=== PATIENT | female | born 1960 | race Caucasian/White ===

== ENCOUNTER 2023-03-09 19:18 | Emergency (ER) | payer OTHER ==
[~2023-03-09] VITALS: Ht 162.6 cm; Wt 83.9 kg
[~2023-03-09 19:18] MED LIST: FLONASE ALLERG9.9 ML; MULTIPLE VITAM1 EAC2 PO; NP THYROID30 MG PO; VITAMIN D3125 MC1 PO
[2023-03-09 19:52] LABS: BASOPHILS 0.2 % (0-2); EOSINOPHILS 5.5 % (0-6); HEMATOCRIT 46.3 % (35.0-50.0); HEMOGLOBIN 15.4 g/dL (12.0-18.0); LYMPHOCYTES 21.6 % (24-44); MCH 31.6 (27-36); MCHC 33.2 g/dl (30-36); MONOCYTES 6.6 % (0-12); NEUTROPHILS 66.1 % (39-80); PLATELET COUNT 294 K/uL (140-440); RBC 4.88 M/ul (4.3-5.7); RDW 13.4 (10.5-15.0)
[2023-03-09 20:11] LABS: ALBUMIN 3.8 g/dL (3.4-5.0); ALBUMIN/GLOBULIN RATIO 1.09 (1.1-2.4); ANION GAP 12.5 (7-21); BILIRUBIN, TOTAL 0.7 ng/dL (0.2-1.0); BUN/CREATININE RATIO 17.56 (6.0-28.6); CREATININE, SERUM 0.74 mg/dL (0.55-1.02); POTASSIUM 3.5 mmol/L (3.5-5.1); PROTEIN, TOTAL 7.3 g/dL (6.4-8.2)
[2023-03-09 20:13] LABS: BILIRUBIN, URINE NEGATIVE (negative); BLOOD/HGB, URINE SMALL (Negative); KETONE, URINE TRACE (Negative); LEUK ESTERASE, URINE NEGATIVE (negative); NITRITE, URINE NEGATIVE (negative); PH, URINE 5.5 (5-7)
[2023-03-09 20:19] LABS: BACTERIA, URINE RARE /hpf (negative); CASTS, URINE NONE SEEN \\lpf; CRYSTALS, URINE NONE SEEN (0-1+); EPITHELIAL CELLS, URINE SQUAMOUS 1+ /lpf (0-1+); REFLEX CULTURE, URINE No (No)
[2023-03-09 20:53] VITALS: BP 145/81
--- NOTE | 2023-03-10 05:51 | EKG ---
[facility] [address] [facility] [place] [address] Signed Sinus tachycardia Nonspecific ST and T wave abnormality Abnormal ECG No previous ECGs available Confirmed by RAHEEM PADRON MD ([id number]) on 03/10/2023 5:51:41 AM Electronically Signed By: RAHEEM PADRON 03/10/23 0551 PATIENT NAME: MONAE TOMPKINS ANN Electrocardiogram DATE OF : 58 PHYSICIAN: RAHEEM PADRON REPORT #: [id number] REPORT IS CONFIDENTIAL AND NOT TO BE RELEASED WITHOUT AUTHORIZATION
== END 2023-03-09 20:50 | disposition home or self-care (01) ==
LOC: ED 19:18
PROVIDERS: Internal Medicine
DX: I10 Essential (primary) hypertension (principal); F43.9 Reaction to severe stress, unspecified; Z88.0 Allergy status to penicillin; Z88.1 Allergy status to other antibiotic agents; Z88.2 Allergy status to sulfonamides; Z91.040 Latex allergy status; Z79.51 Long term (current) use of inhaled steroids; Z79.899 Other long term (current) drug therapy
CPT/HCPCS: 36415; 80053; 81001; 84484; 85025; 93005; 93010; 99283-25; J7121

== ENCOUNTER 2024-05-13 16:55 | Emergency (ER) | payer OTHER ==
[~2024-05-13] VITALS: Ht 162.6 cm; Wt 90.3 kg
[2024-05-13] MEDS ORDERED: ARMOUR THYROID30 MG PO (17:29)
[2024-05-13] MEDS ORDERED: VENTOLIN HFA18 GM INH (17:30)
[2024-05-13] MEDS ORDERED: SODIUM CHLORIDE 0.9% 500 ML IV PRN (19:45)
[2024-05-13 20:12] LABS: BILIRUBIN, URINE NEGATIVE (negative); BLOOD/HGB, URINE TRACE-I (Negative); KETONE, URINE NEGATIVE (Negative); LEUK ESTERASE, URINE SMALL (negative); NITRITE, URINE NEGATIVE (negative)
[2024-05-13 20:19] LABS: BACTERIA, URINE 1+ /hpf (negative); CASTS, URINE NONE SEEN \\lpf; COLLECTION TYPE, URINE CLEAN CATCH; CRYSTALS, URINE NONE SEEN (0-1+); EPITHELIAL CELLS, URINE SQUAMOUS 2+ /lpf (0-1+); REFLEX CULTURE, URINE No (No); WHITE BLOOD CELLS, URINE 21-40 /HPF (0-5)
[2024-05-13 20:26] LABS: BASOPHILS 0.2 % (0-2); EOSINOPHILS 0.4 % (0-6); HEMATOCRIT 46.5 % (35.0-50.0); HEMOGLOBIN 15.3 g/dL (12.0-18.0); LYMPHOCYTES 10.4 % (24-44); MCH 31.2 (27-36); MCHC 32.9 g/dl (30-36); MCV 94.8 fl (81-99); MONOCYTES 3.2 % (0-12); NEUTROPHILS 85.8 % (39-80); PLATELET COUNT 312 K/uL (140-440); RDW 13.9 (10.5-15.0)
[2024-05-13 20:36] LABS: ALBUMIN 3.6 g/dL (3.4-5.0); ALBUMIN/GLOBULIN RATIO 0.88 (1.1-2.4); BILIRUBIN, TOTAL 0.4 mg/dL (0.2-1.0); BUN/CREATININE RATIO 18.3 (6.0-28.6); CALCIUM 9.2 mg/dL (8.5-10.1); CREATININE, SERUM 0.71 mg/dL (0.55-1.02); MAGNESIUM 1.9 mg/dL (1.8-2.4); PROTEIN, TOTAL 7.7 g/dL (6.4-8.2)
[2024-05-13] MEDS ORDERED: CEFTRIAXONE/SODIUM CHLORIDE 2 GM/100 ML PIGGYBACK IV ONE (21:15)
[2024-05-13] MEDS ORDERED: SOD PHOSPHATE/SOD BIPHOSPHATE 132 ML BTL PR ONE (21:30)
[2024-05-13] MEDS ORDERED: CEFDINIR300 MG PO (22:25)
[2024-05-13] MEDS ORDERED: CEFDINIR 300 MG HOME.PACK PO ONE (22:30)
[2024-05-13] MEDS ORDERED: methylPREDNISolone 4 MG HOME.PACK PO ONE (22:30)
[2024-05-13] MEDS ORDERED: ONDANSETRON ODT8 MG PO (22:56)
[2024-05-13] MEDS ORDERED: ONDANSETRON 4 MG HOME.PACK SL ONE (23:00)
[2024-05-13 23:08] VITALS: BP 155/85
--- NOTE | 2024-05-14 11:35 | EKG ---
[facility] [address] [facility] [place] [address] Signed Normal sinus rhythm Nonspecific ST abnormality Abnormal ECG When compared with ECG of 09-MAR-2023 19:45, Nonspecific T wave abnormality, improved in Inferior leads Nonspecific T wave abnormality no longer evident in Lateral leads Confirmed by Robert Falk DO ([id number]) on 05/14/2024 11:35:39 AM Electronically Signed By: ROBERT FALK DO 05/14/24 1135 PATIENT NAME: MONAE TOMPKINS ANN Electrocardiogram DATE OF : 58 PHYSICIAN: ROBERT FALK DO REPORT #: [id number] REPORT IS CONFIDENTIAL AND NOT TO BE RELEASED WITHOUT AUTHORIZATION
== END 2024-05-13 23:10 | disposition home or self-care (01) ==
LOC: ED 16:55
PROVIDERS: Family Medicine
DX: J35.8 Other chronic diseases of tonsils and adenoids (principal); R59.0 Localized enlarged lymph nodes; N39.0 Urinary tract infection, site not specified; E07.9 Disorder of thyroid, unspecified; Z88.2 Allergy status to sulfonamides; Z88.1 Allergy status to other antibiotic agents; Z88.0 Allergy status to penicillin; Z91.040 Latex allergy status; Z79.890 Hormone replacement therapy; Z79.899 Other long term (current) drug therapy
CPT/HCPCS: 36415; 70450; 70496; 70498; 80053; 81001; 83690; 83735; 84484; 85025; 93005; 93010; 99284-25; A9270; J0696; J7040; Q9967

== ENCOUNTER 2024-09-07 10:50 | Day surgery (SDC) | payer OTHER ==
[~2024-09-07] VITALS: Ht 162.6 cm; Wt 86.4 kg
[~2024-09-07 10:50] MED LIST changes: +ARMOUR THYROID30 MG PO; +ASHWAGANDHA300 MG PO; +CEFDINIR300 MG PO; +FLUTICASONE P10.6 GM INH; +IBLOOD GLUCOSE TEST STRIP 1 EA TEST VI PRN; +LACTATED RINGER'S 1,000 ML IV SCH; +LIDOCAINE HCL 1% 5 ML SDV INJ ONE; +LIDOCAINE HCL 4% 50 ML BTL TOP SCH; +MIDAZOLAM HCL 5 MG/5 ML VIAL IV PRN; +NAC500 MG PO; +ONDANSETRON ODT8 MG PO; +QUERCETIN500 MG PO; +SUDOGEST30 MG PO; +VENTOLIN HFA18 GM INH; +fentaNYL citrate 100 MCG/2 ML VIAL IV PRN
[2024-09-07] MEDS ORDERED: MIDAZOLAM HCL 5 MG/5 ML VIAL ONE (10:54)
[2024-09-07] MEDS ORDERED: fentaNYL citrate 100 MCG/2 ML VIAL ONE (10:54)
[2024-09-07 11:05] VITALS: BP 133/76
[2024-09-07] MEDS ORDERED: FLONASE SENSIM5.9 ML NS (11:10)
--- NOTE | 2024-09-07 12:03 | NUR ---
09/07/24 1203 Anjelica Velazquez 1156- PT ARRIVES TO PACU, LEFT LATERAL SEMI ZAPIEN POSIITON. PT VERY DROWSY, BUT ANSWERS QUESTIONS. ABD SOFT, NON DISTENDED. DENIES PAIN OR NAUSEA. O2 AT 2L PER NC, BREATHING EVEN AND NON LABORED. LR INFUSING TO RW IV. 1158- PT FALLS BACK TO SLEEP WITH NO STIMULUS, SLIGHT SNORING BUT BREATHING EVEN AND NON LABORED.
[2024-09-07 12:43] VITALS: BP 116/72
--- NOTE | 2024-09-10 14:30 | OR ---
[facility] [address] [place], [place] [address] Signed DATE OF OPERATION: 09/07/2024 SURGEON: Kylee Reyes MD PREOPERATIVE DIAGNOSIS: Hoarseness of throat, hypertrophied left tonsil and clinical gastroesophageal reflux. POSTOPERATIVE DIAGNOSES: 1. Normal vocal cords. 2. Hiatal hernia with distal esophagitis, mild antral gastritis. PROCEDURE: Esophagogastroduodenoscopy with biopsy. ANESTHESIA: Intravenous sedation fentanyl 100 mcg and Versed 5 mg. INDICATION: This 63-year-old white woman is a patient of FRANCISCO JAVIER Burgos. She was seen by me initially for a left lower pole 1.2 cm heterogeneous thyroid nodule. Fine-needle aspiration biopsy demonstrated cystic fluid and ultimately considered [place] category 2 thyroid nodule, not worrisome for malignancy. The patient has low-grade hoarseness and is also noted to have an enlarged tonsil on the left side. CT scan shows minimal lymph node enlargement in the left neck and she underwent fine-needle aspiration biopsy of the left thyroid nodule as well as one of the lymph nodes. The lymph node biopsy was nondiagnostic. She was seen by Dr. Jolley, ENT surgeon regarding the tonsillar findings. Tonsils considered normal and although larger than the right, not worrisome. She does have an underlying bit of voice hoarseness, which she attributes to allergies. I have recommended upper endoscopy as she does concurrently have reflux symptoms and not currently under ongoing anti-reflux medication treatment. Upper endoscopy is offered to not only evaluate for reflux, but also assess the vocal cords. The risk of bleeding, infection, and perforation related to upper endoscopy was reviewed with her. She understands and wished to proceed. FINDINGS: The vocal cords were normal. The distal esophagus did show inflammation but no sign of Black's epithelium. There was a poor flap valve consistent with hiatal hernia. Stomach had mild antral gastritis. CLOtest was negative. The duodenum was normal. DESCRIPTION OF PROCEDURE: Electronically Signed By: KYLEE REYES MD 09/10/24 1430 PATIENT NAME: MONAE TOMPKINS OPERATIVE REPORT DATE OF : 58 REPORT #: [id number] PHYSICIAN: KYLEE REYES MD PCP: KARINA SHERIFF PAC REPORT IS CONFIDENTIAL AND NOT TO BE RELEASED WITHOUT AUTHORIZATION [facility] [address] [place], [place] [address] Signed The patient was brought to the endoscopy suite and placed in lateral decubitus position, given intravenous sedation to the point of slurred speech and nystagmus. Full cardiopulmonary monitoring was maintained. A bite block was placed. An Olympus video upper endoscope was passed in the hypopharynx and close visualization of the vocal cords showed no sign of nodule or other abnormality. Scope was easily passed in the esophagus throughout its length, it was grossly normal except in the distal portion where there was mild inflammatory change with no Black epithelium. Scope was advanced to the stomach which was insufflated with air. Rugal folds were normal. The antrum showed mild inflammation but no sign of ulceration. The pylorus was normal. Scope was passed through it into the duodenum. Biopsies were then taken of the duodenum. Scope was withdrawn and biopsies taken of the antrum for both DONNA and pathologic testing. Retroflexed view in visualize the GE junction which was patulous and consistent with low-grade hiatal hernia. Scope was withdrawn and biopsies then taken of the distal esophagus and subsequently midesophagus. Further withdrawal showed no other abnormality. The patient was taken to recovery room in good condition and suffered no complication. CONCLUSION DIAGNOSIS: Gastroesophageal reflux with associated distal esophagitis related to hiatal hernia, possibly accounting for hoarseness, but no evidence of vocal cord nodule. RECOMMENDATIONS: Prilosec 20 mg p.o. daily. We will see her back in the office in four to six weeks to review her pathology report, assess her symptoms at that point. MD SHELIA Hector/KEEGANL /[id number] Copies: ~ Electronically Signed By: KYLEE REYES MD 09/10/24 1430 PATIENT NAME: MONAE TOMPKINS OPERATIVE REPORT DATE OF : 58 REPORT #: [id number] PHYSICIAN: KYLEE REYES MD PCP: KARINA SHERIFF PAC REPORT IS CONFIDENTIAL AND NOT TO BE RELEASED WITHOUT AUTHORIZATION
--- NOTE | 2024-09-11 10:56 | PATH ---
[facility] [address] [place], [place] [address] Signed SPECIMEN(S): A DUODENAL BIOPSY SPECIMEN(S): B ANTRUM BIOPSY SPECIMEN(S): C DISTAL ESOPHAGEAL BIOPSY SPECIMEN(S): D MIDDLE ESOPHAGEAL BIOPSY SPECIMEN SOURCE: A. DUODENAL BIOPSY B. ANTRUM BIOPSY C. DISTAL ESOPHAGEAL BIOPSY D. MIDDLE ESOPHAGEAL BIOPSY CLINICAL HISTORY: Pre-: Reflux/voice hoarseness. Post: Distal esophagitis, hiatal hernia, normal vocal cords A-D) biopsy FINAL PATHOLOGIC DIAGNOSIS: A. Duodenal biopsy: - Benign small bowel mucosa consistent with duodenum - Negative for specific features of celiac sprue B. Antrum biopsy: - Fragments of benign gastric mucosa - Negative for active acute inflammation, intestinal metaplasia, dysplasia, or Helicobacter organisms by routine HE stain C. Distal esophageal biopsy: - Benign squamous mucosa with moderate to marked eosinophilia (up to 35 eosinophils per high-power field) - Negative for glandular mucosa, intestinal metaplasia, or dysplasia D. Middle esophageal biopsy: - Benign squamous mucosa with marked eosinophilia (up to 40 eosinophils per high-power field) - Negative for glandular mucosa, intestinal metaplasia, or dysplasia BB MICROSCOPIC EXAMINATION: Histologic sections of all submitted blocks are examined by light microscopy. These findings, together with the gross examination, support the pathologic diagnosis. GROSS DESCRIPTION: A. The specimen, labeled and designated "Eva Valentino, duodenal biopsy," is PATIENT NAME: MONAE VALENTINO PATHOLOGY DATE OF : 58 REPORT #: [id number] PHYSICIAN: PAUL GARCIA PCP: KARINA SHERIFF PAC REPORT IS CONFIDENTIAL AND NOT TO BE RELEASED WITHOUT AUTHORIZATION [facility] [address] [place], [place] [address] Signed received in formalin and consists of two obrien soft tissue fragments, ranging from 0.3-0.4 cm. Entirely submitted in (A1). B. The specimen, labeled and designated "Chicho, C, antrum biopsy," is received in formalin and consists of one obrien soft tissue fragment, 0.9 cm. Entirely submitted in (B1). C. The specimen, labeled and designated "Chicho, C, distal esophageal biopsy," is received in formalin and consists of three obrien soft tissue fragments, ranging from 0.2-0.8 cm. Entirely submitted in (C1). D. The specimen, labeled and designated "Chicho, C, middle esophageal biopsy," is received in formalin and consists of two obrien soft tissue fragments, ranging from 0.4-0.5 cm. Entirely submitted in (D1). AB (under the direct supervision of a pathologist) The Gross Description was prepared using a voice recognition system. The report was reviewed for accuracy; however, sound-alike word errors, addition and/or deletions may occur. If there is any question about this report, please contact Client Services. ADDITIONAL NOTES: Immunohistochemical and/or in situ hybridization studies if performed in this case included appropriate positive controls that reacted as expected. This test was developed and its performance characteristics determined by [facility] [employer]. It has not been cleared or approved by the U.S. Food and Drug Administration. The FDA has determined that such clearance or approval is not necessary. This test is used for clinical purposes. It should not be regarded as investigational or for research. [facility] is certified under the Clinical Laboratory Improvement Amendments of 1988 (CLIA) as qualified to perform high complexity clinical laboratory testing. PERFORMING LABORATORY: Technical component was performed by [facility], [address] [place] [address] (CLIA# [id number]). Professional interpretation was performed by [facility] - [address] [place] [address] (CLIA#: [id number]). Diagnostician: Sal Thompson MD Pathologist Electronically Signed 09/11/2024 PATIENT NAME: MONAE VALENTINO ANN PATHOLOGY DATE OF : 58 REPORT #: [id number] PHYSICIAN: PAUL PATHOLOGY PCP: KARINA SHERIFF PAC REPORT IS CONFIDENTIAL AND NOT TO BE RELEASED WITHOUT AUTHORIZATION [facility] [address] [facility] [place] [address] Signed Copies: ~ PATIENT NAME: MONAE VALENTINO ANN PATHOLOGY DATE OF : 58 REPORT #: [id number] PHYSICIAN: PAUL PATHOLOGY PCP: KARINA SHERIFF PAC REPORT IS CONFIDENTIAL AND NOT TO BE RELEASED WITHOUT AUTHORIZATION
== END 2024-09-07 12:36 | disposition home or self-care (01) ==
LOC: DS 10:50
PROVIDERS: ATTEND Surgery
PROC: 0DB78ZX Excision of Stomach, Pylorus, Via Natural or Artificial Opening Endoscopic, Diagnostic (ICD-10-PCS; 2024-09-07)
PROC: 0DB28ZX Excision of Middle Esophagus, Via Natural or Artificial Opening Endoscopic, Diagnostic (ICD-10-PCS; 2024-09-07)
PROC: 0DB38ZX Excision of Lower Esophagus, Via Natural or Artificial Opening Endoscopic, Diagnostic (ICD-10-PCS; 2024-09-07)
PROC: 0DB98ZX Excision of Duodenum, Via Natural or Artificial Opening Endoscopic, Diagnostic (ICD-10-PCS; principal; 2024-09-07 12:15)
DX: K21.00 Gastro-esophageal reflux disease with esophagitis, without bleeding (principal); K29.70 Gastritis, unspecified, without bleeding; K44.9 Diaphragmatic hernia without obstruction or gangrene; J35.1 Hypertrophy of tonsils; E04.1 Nontoxic single thyroid nodule; J45.909 Unspecified asthma, uncomplicated; E03.9 Hypothyroidism, unspecified; Z79.51 Long term (current) use of inhaled steroids; Z79.890 Hormone replacement therapy; Z88.0 Allergy status to penicillin; Z88.1 Allergy status to other antibiotic agents; Z88.2 Allergy status to sulfonamides
CPT/HCPCS: G0500; J2250; J3010; J7121